=== PATIENT | male | born 1995 | race Caucasian/White ===

== ENCOUNTER 2017-10-27 01:08 | Emergency (ER) | payer SELFPAY ==
[2017-10-27] MEDS ORDERED: Sodium Chloride 0.9% 1,000 ML IV STA (01:33)
--- NOTE | 2017-10-27 02:30 | ED PDOC ---
HPI: Psych/Substance Abuse Time Seen by Provider: 10/27/17 01:33 Chief Complaint (Nursing): Alcohol Ingestion ED Caveat: Acuity of Condition History Per: Patient, EMS History/Exam Limitations: intoxication Onset/Duration Of Symptoms: Hrs Additional Complaint(s): Patient admits to drinking alcohol. +Vomiting. Denies injury. Patient intoxicated. Denies drugs. Past Medical History Reviewed: Historical Data, Nursing Documentation, Vital Signs Vital Signs: Last Vital Signs Temp 98.8 F 10/27/17 01:14 Pulse 88 10/27/17 01:10 Resp 20 10/27/17 01:14 BP 130/86 10/27/17 01:14 Pulse Ox 96 10/27/17 01:10 - Family History Family History: States: Unknown Family Hx - Allergies Allergies/Adverse Reactions: Allergies Allergy/AdvReac Type Severity Reaction Status Date / Time No Known Allergies Allergy Verified 10/27/17 01:10 Review of Systems Review Of Systems: ROS cannot be obtained secondary to pt's inabilty to answer questions. Physical Exam - Reviewed Nursing Documentation Reviewed: Yes Vital Signs Reviewed: Yes - Physical Exam Appears: Positive for: Well (Intoxicated appearing), Non-toxic, No Acute Distress Head Exam: Positive for: ATRAUMATIC, NORMAL INSPECTION, NORMOCEPHALIC Skin: Positive for: Normal Color, Warm, DRY Eye Exam: Positive for: EOMI, Normal appearance, PERRL ENT: Positive for: Normal ENT Inspection Neck: Positive for: Normal, Painless ROM Cardiovascular/Chest: Positive for: Regular Rate, Rhythm Respiratory: Positive for: CNT, Normal Breath Sounds Gastrointestinal/Abdominal: Positive for: Normal Exam, Soft. 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 Negative for: Alert ( Falls asleep easily), Motor/Sensory Deficits - ECG O2 Sat by Pulse Oximetry: 96 Pulse Ox Interpretation: Normal Medical Decision Making Medical Decision Makin Patient with alcohol intoxication, no injuries. Will continue to observe. 600 Patient awake, alert, steady gait, normal vitals. Disposition - Clinical Impression Clinical Impression: Alcohol abuse - Patient ED Disposition Is Patient to be Admitted: No - Disposition Referrals: Alcoholics Anonymous [Outside] Disposition Time: 06:00 Condition: STABLE Instructions: Alcohol Abuse and Alcoholism (DC) Forms: [email or web address] (Latvian)
[2017-10-27 06:07] VITALS: BP 123/75; PULSE 92; RESP 18; TEMP 98.2
[2017-10-28 07:17] VITALS: O2SAT 96
== END 2017-10-27 05:50 | disposition home or self-care (01) ==
LOC: H.ER 01:08
DX: F10.10 Alcohol abuse, uncomplicated (principal); Y90.7 Blood alcohol level of 200-239 mg/100 ml
CPT/HCPCS: 82948; 96374; 99284; G0480; J2405; J7030